=== PATIENT | female | born 1935 | race Caucasian/White ===

== ENCOUNTER 2018-09-07 05:43 | Inpatient (IN) ==
[2018-09-07] MEDS ORDERED: DEXTROSE 50% 50 ML SYRINGE IV PRN (09:06)
[2018-09-07] MEDS ORDERED: GLUCAGON FOR INJ 1 MG VIAL SQ PRN (09:06)
[2018-09-07] MEDS ORDERED: GLUCOSE 10 TABS/TUBE PO PRN (09:06)
[2018-09-07] MEDS ORDERED: ONDANSETRON INJ 2 MG/ML 2 ML VIAL IV PRN (09:06)
[2018-09-07] MEDS ORDERED: CARBOHYDRATES FOR HYPOGLYCEMIA PO PRN (09:06)
[2018-09-07] MEDS ORDERED: ACETAMINOPHEN 325 MG TAB PO PRN (09:06)
[2018-09-07] MEDS ORDERED: GLUCOSE 40% GEL 15 GM TUBE PO PRN (09:06)
[2018-09-07] MEDS ORDERED: dilTIAZem HCl 125 MG in DEXTROSE 5% 100 ML IV SCH (09:30)
--- NOTE | 2018-09-07 09:35 | History & Physical Report ---
Date of Service September 07, 2018 Assessment & Plan (1) Atrial fibrillation with RVR: - Admit to tele - Trend cardiac biomarkers, initial set was negative at 0.021 from OSH - EKG reviewed per paper chart showing Afib with QI=259, now converted to NSR. - Check 2 D echo, pt reports had one in May. Follows with Dr. Villeda as outpatient and is scheduled to see him in November. Have requested records from his office. Will ask CM to schedule f/u appt sooner. - PT/OT consulted - Cardiology consulted - For now continue cardizem gtt but likely will transition off this with titration of her metoprolol succ. Ordered morning dose now. Likely can increase metoprolol from 25 mg to 50 mg daily, monitor BP. Stable -Was given Lovenox 75 mg x 1 at outside hospital this morning (2) Elevated troponin: Troponin trended upward and is likely secondary to myocardial demand ischemia due to rapid atrial fibrillation with likely underlying CAD -Nuclear medicine stress test scheduled for in the morning as per cardiology Trend troponin until peaks -Continue aspirin, beta-karin (3) HTN (hypertension): - Continue losartan/hctz for now -Increasing metoprolol to 50 mg daily - BP well controlled (4) DM II (diabetes mellitus, type II), controlled: - Accuchecks achs, ISS - A1C with am labs - HH/DM diet (5) Osteoporosis: - Cont Vit D supplementation (6) History of rib fracture: - R 6th per pt report, healing well, no respiratory complaints. If checking additional CXR note that this is an old fracture. - Due to mechanical fall about 1 month ago. - PT/OT consults, pt lives at home with her son. (7) Nephrolithiasis: - Hx of such, stable (8) GERD (gastroesophageal reflux disease): - Stable, likely contributing to burning sensation she experienced last night. Uses tums prn. (9) Valvular heart disease: Moderate MR, mild aortic stenosis -Follow as an outpatient (10) DVT prophylaxis: - Lovenox 40 mg daily, consider anticoagulation per cardiology. History of Present Illness Primary Care Provider: Solange Houston This is a 82 yo F with PMHx of HTN, DM II, osteoporosis, nephrolithiasis who presents from [facility] with episode of new onset afib with RVR. She was started on a cardizem bolus & gtt, lovenox 75 mg subq for anticoagulation and aspirin 81 mg, and was transferred due to the facility without available assembler sandal parts. She has since converted back to NSR with HR in 70s during transport. Pt notes palpitations and substernal burning started last evening while she was at home, she went to bed but was unable to sleep. At 0300 presented to [place]. She did not take morning metoprolol today. The patient currently feels well and states no longer with palpitations or burning. She denies any shortness of breath, chest pain. Pt notes she did fall about 1 month ago, mechanical fall d/t missing a step, and suffered a Right 6th rib fracture. She denies respiratory complaints regarding this. Initial troponin-I was 0.021, CBC wnl, PRP wnl. Allergies Allergy/AdvReac Type Severity Reaction Status Date / Time lansoprazole [From Prevacid] AdvReac Mild Unknown Verified 01/12/18 18:08 Home Medications Home Medications Medication Instructions Recorded Confirmed Type aspirin [Aspir-81] 81 mg PO DAILY 01/12/18 09/07/18 History calcium carbonate [Calcium 600] 600 mg PO BID 01/12/18 09/07/18 History cholecalciferol (vitamin D3) 2,000 unit PO DAILY 01/12/18 09/07/18 History [Vitamin D3] losartan-hydrochlorothiazide 1 tab PO DAILY 01/12/18 09/07/18 History metformin 500 mg PO BID 01/12/18 09/07/18 History metoprolol succinate 25 mg PO DAILY 01/12/18 09/07/18 History vit C-vit [id number]-3 1 cap PO DAILY 01/12/18 09/07/18 History [Ocuvite] Past Med/Surg History Medical History Nephrolithiasis History of rib fracture DM II (diabetes mellitus, type II), controlled Atrial fibrillation with RVR GERD (gastroesophageal reflux disease) Osteoarthritis Diabetes HTN (hypertension) Surgical History History of section Family History Other Family history non-contributory Social History Preferred Language: Bahamian Communication Ability: Effective Test Center 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 Beliefs That Will Affect Care: None Current Living Situation: Family Current Living Situation Comment: lives with son Other Information That Helps Us Care for You: No Feels Safe at Home: Yes Safety Concerns: Feels Safe At This Time Smoking Status: Former smoker Tobacco Type: cigarettes Smoking End Date: quit 20 yrs ago Second Hand Exposure: No Hx Alcohol Use: No Hx Substance Use: No Review of Systems Review of Systems: Constitutional: No fever, sweats or chills Eyes: No diplopia, no worsening or blurred vision ENT: normal hearing, no trouble swallowing Respiratory: No cough, sputum, dyspnea at rest or on exertion Cardiovascular: No chest pain, tightness or palpitations Abdomen: No pain, nausea, vomiting, diarrhea or constipation Musculoskeletal: No joint pain, calf pain, swelling Neurologic: No weakness, numbness/tingling, or balance problems Psychiatric: No anxiety or depression Skin: No rash or itch Physical Exam Physical Exam: General: awake, alert, no apparent distress Head: Normocephalic, atraumatic ENT: PERRL, EOMI, no pharyngeal exudate, mucous membranes moist Chest: Clear to auscultation, on room air, no adventitious breath sounds Cardiac: Regular rate and rhythm, faint murmur, no JVD, normal peripheral pulses, good capillary refill Abdominal: NABS x 4 quadrants, soft, nontender to palpation, no rebound, guarding or tenderness Extremities: Normal inspection, no peripheral edema or erythema, calfs nontender to palpation Psych: Normal mood and affect Neuro: AAO x 3, no motor deficits, speech is clear Results & Data Vital Signs (Past 12 Hours) Vital Signs Temp Pulse Pulse Resp BP Pulse Ox 09/07/18 08:40 36.8 C 75 18 100/63 96 09/07/18 08:35 77 Laboratory Results 09/07/18 09/07/18 09/07/18 Range/Units 16:31 16:28 16:28 WBC 8.93 (4.8-10.8) K/uL RBC 3.65 L (4.2-5.4) M/uL Hgb 11.6 L (12.0-16.0) g/dL Hct 33.9 L (37-47) % MCV 92.9 (80-100) fL MCH 31.8 (25-34) pg MCHC 34.2 (32-36) g/dL RDW Std Deviation 49.2 H (36.4-46.3) fL RDW Coeff of Hakan 14.4 (11.5-14.5) % Plt Count 238 (130-400) K/uL MPV 9.6 (7.4-10.4) fL Creatinine 0.70 (0.6-1.2) mg/dl Est Cr Clr Drug Dosing 62.1 ml/min Est GFR ( Amer) 94.8 Est GFR (Non-Af Amer) 81.8 POC Glucose 113 H (70-99) Total Bilirubin 0.3 (0.2-1) mg/dl Direct Bilirubin < 0.1 (0-0.2) mg/dl AST 19 (15-37) U/L ALT 21 (12-78) U/L Alkaline Phosphatase 86 (45-117) U/L Troponin I (0-0.045) ng/ml Total Protein 6.5 (6.4-8.2) gm/dl Albumin 3.3 L (3.4-5.0) gm/dl 09/07/18 09/07/18 09/07/18 Range/Units 15:40 11:10 09:34 WBC (4.8-10.8) K/uL RBC (4.2-5.4) M/uL Hgb (12.0-16.0) g/dL Hct (37-47) % MCV (80-100) fL MCH (25-34) pg MCHC (32-36) g/dL RDW Std Deviation (36.4-46.3) fL RDW Coeff of Hakan (11.5-14.5) % Plt Count (130-400) K/uL MPV (7.4-10.4) fL Creatinine (0.6-1.2) mg/dl Est Cr Clr Drug Dosing ml/min Est GFR ( Amer) Est GFR (Non-Af Amer) POC Glucose 107 H (70-99) Total Bilirubin (0.2-1) mg/dl Direct Bilirubin (0-0.2) mg/dl AST (15-37) U/L ALT (12-78) U/L Alkaline Phosphatase (45-117) U/L Troponin I 1.330 H* 0.374 H* (0-0.045) ng/ml Total Protein (6.4-8.2) gm/dl Albumin (3.4-5.0) gm/dl 09/07/18 Range/Units 09:18 WBC (4.8-10.8) K/uL RBC (4.2-5.4) M/uL Hgb (12.0-16.0) g/dL Hct (37-47) % MCV (80-100) fL MCH (25-34) pg MCHC (32-36) g/dL RDW Std Deviation (36.4-46.3) fL RDW Coeff of Hakan (11.5-14.5) % Plt Count (130-400) K/uL MPV (7.4-10.4) fL Creatinine (0.6-1.2) mg/dl Est Cr Clr Drug Dosing ml/min Est GFR ( Amer) Est GFR (Non-Af Amer) POC Glucose 126 H (70-99) Total Bilirubin (0.2-1) mg/dl Direct Bilirubin (0-0.2) mg/dl AST (15-37) U/L ALT (12-78) U/L Alkaline Phosphatase (45-117) U/L Troponin I (0-0.045) ng/ml Total Protein (6.4-8.2) gm/dl Albumin (3.4-5.0) gm/dl ECG Additional Comments: Reviewed from outside hospital records. See paper chart. Afib with RVR has since converted to NSR. Code Status & VTE Plan Code Status Full code, no heroic measures. - Discussed with pt at bedside. Supervising Physician Co-Signing Physician Notes PA Supervision Note: I personally saw and examined the patient. I verified all jones points and agree with KYLEE Gardner with the following exceptions and/or additions: This patient is an 82-year-old female with history as above who presents with palpitations and found to have rapid atrial fibrillation. This is new in onset for her. She also had associated chest burning and elevated troponin here. No further chest burning. No shortness of breath or palpitations. She converted to normal sinus rhythm in transit to this hospital. History reviewed as above ROS-other than above, patient also complains of leg cramps mostly at night. She is able to walk and go shopping without having to stop for leg cramps. Vitals reviewed Gen: AAOx3, NAD HEENT: Anicteric sclerae, EOMI CV: RRR positive 2/6 systolic murmur heard at the right upper sternal border, 3/6 holosystolic murmur heard best at the apex, nl S1S2 Pulm: CTAB no wcr Abd: +BS soft NT ND no masses or hernias Ext: No edema, 2+ DP/PT/popliteal/femoral pulses of the right lower extremity, left lower extremity with 2+ femoral and 1+ popliteal/DP/PT pulses Skin: No rashes, warm/dry Neuro: Full strength throughout 82-year-old female here with new onset rapid atrial fibrillation High [id number] score and needs anticoagulation-discussed risks of bleeding versus risk of benefit of reduction of stroke with patient. Discussed all options for anticoagulation and she would like to go with Eliquis. Start Eliquis 5 mg p.o. twice daily Increase metoprolol succinate to 50 mg once daily for rate control Trend troponin until it peaks, nuclear medicine stress test in the morning
[2018-09-07] MEDS ORDERED: Nursing to Pharmacy Communication ONE (10:36)
[2018-09-07] MEDS ORDERED: METOPROLOL SUCC 25MG EXT REL TAB PO SCH (11:00)
[2018-09-07] MEDS: CHOLECALCIFEROL 1,000 UNITS TAB PO SCH (12:00)
[2018-09-07] MEDS: ASPIRIN 81 MG ECTAB PO SCH (12:00)
[2018-09-07] MEDS: LOSARTAN/HCTZ 50/12.5MG TAB PO SCH (12:00)
--- NOTE | 2018-09-07 13:56 | Cardiology Consultation ---
Date of Consultation September 07, 2018 Assessment & Plan (1) Atrial fibrillation with RVR: The patient presented with atrial fibrillation. This is a new diagnosis. The patient most likely symptomatic from her high ventricular rates that as administration of diltiazem and control of her heart rate seemed to improve her symptoms dramatically. Subsequently she converted back to normal sinus rhythm. Currently she is feeling quite well. 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 Her atrial fibrillation is likely related to her age and chronic hypertension in addition to the structural changes noted on echocardiography. I would agree with doubling her beta-blockade. She also meets criteria for systemic anticoagulation. I would advocate stopping her aspirin in starting her either on Eliquis 5 milligrams twice daily or Xarelto 20 milligrams daily. Present on Admission?: No (2) Valvular heart disease: She has moderate mitral regurgitation and mild aortic stenosis. I do not believe either of these contributed to her symptoms earlier this morning. She has had echocardiography in the past and is currently followed by her own car diologist. These valvular lesions can be monitored over time. (3) Elevated troponin: She does have very mildly elevated troponin. This likely related to [place] ischemia rather than acute coronary event. She has significant LVH. She has an element of valvular heart disease and likely had very high ventricular rates. She did describe a sense of burning during her arrhythmia. It is possible this represented symptoms from ischemia. She does describe similar symptoms on occasion that are not definitely associated with activity. I think would be worth perfusion imaging in order to make sure she does not have a large territory myocardium at risk. She does report having had similar stress tests in the past but never being told that she had significant disease. The results of her stress testing are favorable do not think any additional intervention is required other than that for treatment of her atrial fibrillation. History of Present Illness Reason for Consultation: Atrial fibrillation Requesting Physician: Brittnee Attending Physician: Brittany Beaulieu MD History of Present Illness Patient is an 82-year-old woman without a history of coronary disease who awoke approximately midnight this morning with symptoms of palpitations and tachycardia. Patient had not had similar symptoms in the past. There was some associated chest burning. She did not report associated dizziness or lightheadedness. Symptoms persisted for several hours when she finally decided to go to the emergency room at [facility]. At that facility she was discovered to have atrial fibrillation and associated high ventricular rates. She was started on a diltiazem infusion and transferred to our facility for further care. Patient states that when she was administered the medication and clear field she felt better. Currently she has not been experiencing any symptoms of palpitations. Her chest burning also has resolved. In general, she is a sedentary individual. She is able to perform routine housework without limiting symptoms. She states that she does occasionally have chest burning but this is fairly random in nature. It does not appear to be clearly associated with any activity. She has occasional skipped beats. It is unclear whether she feels these are if she has been told she has an irregula rity in her heart based on prior monitoring. She has not been sick recently. She denies any orthopnea or paroxysmal nocturnal dyspnea. She has not had lower extremity edema. No other symptoms of chest pain. Allergies Allergy/AdvReac Type Severity Reaction Status Date / Time lansoprazole [From Prevacid] AdvReac Mild Unknown Verified 01/12/18 18:08 Home Medications Home Medications Medication Instructions Recorded Confirmed Type aspirin [Aspir-81] 81 mg PO DAILY 01/12/18 09/07/18 History calcium carbonate [Calcium 600] 600 mg PO BID 01/12/18 09/07/18 History cholecalciferol (vitamin D3) 2,000 unit PO DAILY 01/12/18 09/07/18 History [Vitamin D3] losartan-hydrochlorothiazide 1 tab PO DAILY 01/12/18 09/07/18 History metformin 500 mg PO BID 01/12/18 09/07/18 History metoprolol succinate 25 mg PO DAILY 01/12/18 09/07/18 History vit C-vit [id number]-3 1 cap PO DAILY 01/12/18 09/07/18 History [Ocuvite] Patient History Medical History Nephrolithiasis History of rib fracture DM II (diabetes mellitus, type II), controlled Atrial fibrillation with RVR GERD (gastroesophageal reflux disease) Osteoarthritis Diabetes HTN (hypertension) Surgical History History of section Social History Preferred Language: Turkmen Communication Ability: Effective Custom Bike Builder Required: No Beliefs That Will Affect Care: None Current Living Situation: Family Current Living Situation Comment: lives with son Other Information That Helps Us Care for You: No Feels Safe at Home: Yes Safety Concerns: Feels Safe At This Time Smoking Status: Former smoker Tobacco Type: cigarettes Smoking End Date: quit 20 yrs ago Second Hand Exposure: No Hx Alcohol Use: No Hx Substance Use: No Review of Systems Review of Systems: All systems reviewed & are unremarkable except as noted in HPI & below No recent constitutional symptoms such as fevers or chills. Physical Exam Physical Exam: She is alert and oriented x3. Mood affect appear normal. She answered all questions appropriately. HEENT: Sclerae are anicteric. Pupils are equal and reactive to light and acc ommodation. Extraocular movements were intact. Neuro: Cranial nerves intact Neck: Examination of the submandibular region did not reveal any significant lymphadenopathy. Carotids are palpable bilaterally and free of bruits on auscultation. There was no evidence of jugular venous distention. The thyroid was not enlarged. Lungs: Lungs are clear to auscultation bilaterally. There are no rales wheezes or rhonchi. She has normal respiratory effort without use of accessory muscles. There is normal pulmonary excursion. Cardiac: The rhythm was regular. S1 and S2 were normal. Harsh crescendo systolic murmur. The PMI was not markedly displaced on palpation. Abdomen: The abdomen was soft and nontender. Extremities: Patient has bilateral radial pulses that are equal in intensity. There is no evidence cyanosis or clubbing. There was no evidence of significant peripheral edema bilaterally. Skin: There are no rashes noted on examination today. Results & Data Vital Signs (Past 12 Hours) Vital Signs Temp Pulse Pulse Resp BP Pulse Ox 09/07/18 11:03 36.6 C 69 22 100/59 L 95 09/07/18 08:40 36.8 C 75 18 100/63 96 09/07/18 08:35 77 Laboratory Results Abnormal Lab Results 09/07/18 09/07/18 09/07/18 09:18 09:34 11:10 POC Glucose 126 H 107 H Troponin I 0.374 H* Diagnostic Findings Echocardiogram performed today revealed severe left ventricular hypertrophy, moderate mitral regurgitation, mild aortic stenosis but preserved LV systolic function. EKG obtained at our institution revealed normal sinus rhythm with evidence of left ventricular hypertrophy ECG Additional Comments: Normal sinus rhythm left ventricular hypertrophy
[2018-09-07] MEDS: INSULIN ASPART 100 UNITS/ML 3 ML PEN SC SCH ×3 (14:02→20:34)
[2018-09-07 16:40] LABS: Hematocrit (blood only) 33.9 % (37-47); Hemoglobin 11.6 g/dL (12.0-16.0); Mean Corpuscular Volume 92.9 fL (80-100); Mean Platelet Volume 9.6 fL (7.4-10.4); Platelet Count 238 K/uL (130-400); RDW Coefficient of Variation 14.4 % (11.5-14.5); RDW Standard Deviation 49.2 fL (36.4-46.3); Red Blood Count 3.65 M/uL (4.2-5.4); White Blood Count 8.93 K/uL (4.8-10.8)
[2018-09-07 16:48] LABS: Mean Corpuscular Hgb Conc 34.2 g/dL (32-36)
[2018-09-07 16:56] LABS: Alanine Aminotransferase 21 U/L (12-78); Albumin Level 3.3 gm/dl (3.4-5.0); Aspartate Aminotransferase 19 U/L (15-37); Bilirubin Direct < 0.1 mg/dl (0-0.2); Creatinine Clr Calc Pharmacy 62.1 ml/min; Est GFR (African American) 94.8; Est GFR (Non-African American) 81.8
[2018-09-07 16:59] LABS: Alkaline Phosphatase 86 U/L (45-117); Bilirubin,Total 0.3 mg/dl (0.2-1); Total Protein 6.5 gm/dl (6.4-8.2)
[2018-09-07] MEDS: APIXABAN 5 MG TABLET PO SCH (20:33)
[2018-09-08 07:00] LABS: Hematocrit (blood only) 35.5 % (37-47); Hemoglobin 11.9 g/dL (12.0-16.0); Mean Corpuscular Hgb Conc 33.5 g/dL (32-36); Mean Corpuscular Volume 94.2 fL (80-100); Mean Platelet Volume 9.6 fL (7.4-10.4); Platelet Count 215 K/uL (130-400); RDW Coefficient of Variation 14.4 % (11.5-14.5); RDW Standard Deviation 49.1 fL (36.4-46.3); Red Blood Count 3.77 M/uL (4.2-5.4); White Blood Count 6.73 K/uL (4.8-10.8)
[2018-09-08 07:33] LABS: Albumin Level 3.3 gm/dl (3.4-5.0); BUN Creatinine Ratio 26.2 (10-20); Calcium 8.6 mg/dl (8.5-10.1); Est GFR (African American) 99.2; Est GFR (Non-African American) 85.6; Magnesium 2.2 mg/dl (1.8-2.4); Potassium 3.8 mmol/L (3.5-5.1)
[2018-09-08 07:36] LABS: Albumin Globulin Ratio 1.1 (0.9-2); Bilirubin,Total 0.4 mg/dl (0.2-1); Globulin 3.1 gm/dl (2.5-4.0); Phosphorus 2.2 mg/dl (2.5-4.9); Total Protein 6.4 gm/dl (6.4-8.2)
[2018-09-08 07:40] LABS: Estimated Average Glucose 128 mg/dl
[2018-09-08] MEDS ORDERED: REGADENOSON 0.4 MG/5 ML SYR IV ONE (07:50)
[2018-09-08] MEDS ORDERED: METOPROLOL SUCC 50MG EXT REL TAB PO SCH (09:00)
[2018-09-08] MEDS ORDERED: ENOXAPARIN INJ 40 MG/0.4 ML SYR SQ SCH (09:00)
[2018-09-08] MEDS: INSULIN ASPART 100 UNITS/ML 3 ML PEN SC SCH ×3 (09:31→16:48)
[2018-09-08] MEDS: APIXABAN 5 MG TABLET PO SCH (10:17)
[2018-09-08] MEDS: ASPIRIN 81 MG ECTAB PO SCH (10:17)
[2018-09-08] MEDS: LOSARTAN/HCTZ 50/12.5MG TAB PO SCH (10:17)
[2018-09-08] MEDS: CHOLECALCIFEROL 1,000 UNITS TAB PO SCH (10:18)
--- NOTE | 2018-09-08 17:37 | Myocardial Perfusion Study ---
Date of Service September 08, 2018 Myocardial Perfusion Study [facility] Myocardial Perfusion Study Report Procedure: 1. Myocardial perfusion study performed in multiple views/images 2. Lexiscan pharmacologic stress ECG Indications: 1. NSTEMI 2. Atrial fibrillation Ordering physician: Dr. Beaulieu Procedural details: For the stress portion of the study, Lexiscan 0.4 mg was intravenously administered followed by a saline flush. This was followed by 32.19 mCi of technetium 99m Cardiolite, injected at 9:10 a.m. on 09/08/2018. 30 minutes following the injection, imaging of the heart was performed in multiple projections. For the rest portion of the study, 11.2 mCi technetium 99m Cardiolite was injected intravenously at 7:32 a.m. on 09/08/2018. 1 hour following the injection, imaging of the heart was performed in the same projections. Lexiscan stress ECG: Resting ECG demonstrated: Sinus rhythm 78 bpm. Inferolateral T-wave inversion. LVH. Maximum heart rate: 121 bpm Maximal, age-predicted heart rate: 86 % Resting blood pressure: 139/75 mmHg Maximum blood pressure: 168/[address] changes: None Arrhythmia: None Symptoms: None Findings: Rotating raw imaging demonstrated no significant lung uptake. There is no significant motion artifact. Heart size appeared normal. Myocardial perfusion demonstrated a large area of severely reduced uptake involving the base to distal inferior and base to distal inferolateral wall segments which was partially fixed, but significantly reversible in rest imaging. Ejection fraction: 49 % Wall motion: Hypokinesis involving the inferior and inferolateral wall segments. Otherwise normal wall motion. Visually, transient ischemic dilation suggested. Impression: 1. Abnormal myocardial perfusion study suggesting a large area of inferior and inferolateral ischemia. 2. Low-normal left ventricular systolic function. EF 49%. 3. Hypokinesis of the inferior and inferolateral wall segments. 4. Transient ischemic dilation suggested. 5. Negative Lexiscan ECG for ischemia at 86% MPHR. 6. Dr. Cordova (it security consultant associate sales manager) was notified of above findings.
--- NOTE | 2018-09-08 18:42 | Discharge Summary ---
Date of Service September 08, 2018 Admission HPI Per Admitting Provider This is a 82 yo F with PMHx of HTN, DM II, osteoporosis, nephrolithiasis who presents from [facility] with episode of new onset afib with RVR. She was started on a cardizem bolus & gtt, lovenox 75 mg subq for anticoagulation and aspirin 81 mg, and was transferred due to the facility without available hardware installer. She has since converted back to NSR with HR in 70s during transport. Pt notes palpitations and substernal burning started last evening while she was at home, she went to bed but was unable to sleep. At 0300 presented to [place]. She did not take morning metoprolol today. The patient currently feels well and states no longer with palpitations or burning. She denies any shortness of breath, chest pain. Pt notes she did fall about 1 month ago, mechanical fall d/t missing a step, and suffered a Right 6th rib fracture. She denies respiratory complaints regarding this. Initial troponin-I was 0.021, CBC wnl, PRP wnl. Principal Diagnosis Rapid atrial fibrillation Myocardial demand ischemia Abnormal Nuclear Stress test Discharge Exam Constitutional WD/WN, vitals as above Neck trachea midline, no thyromegaly Respiratory normal respiratory effort, lungs clear to auscultation Cardiovascular Rate/Rhythm: regular rate and regular rhythm Heart Sounds: + murmur (3/6 LETICIA at RUSB) Extremities: no edema Gastrointestinal (Abdomen) normal bowel sounds, soft, nontender, no hepatosplenomegaly Musculoskeletal Extremities: extremities normal to inspection; no cyanosis and no clubbing Skin no rashes, warm and dry Neurologic moves all extremities and awake; no focal motor deficits Psychiatric A+Ox3, euthymic affect Discharge Data Allergies Allergy/AdvReac Type Severity Reaction Status Date / Time lansoprazole [From Prevacid] AdvReac Mild Unknown Verified 01/12/18 18:08 Consultations Cardiology Procedures Performed Nuclear Myocardial perfusion Stress test Ordered Studies ECHO Hospital Course (1) Atrial fibrillation with RVR: This patient is an 82-year-old female who presents with palpitations and found to have rapid atrial fibrillation. This is new in onset for her. She als o had associated chest burning and elevated troponin here. No further chest burning after admission was noted. No shortness of breath or palpitations. She converted to normal sinus rhythm in transit to this hospital. -she was admitted to telemetry unit here and no further episodes of atrial fibrillation - troponin peaked at 1.33 after admission and then trended downward as below - Cardiology consulted and recommended starting anticoagulation with Elqiuis nad pt was agreeable to this -also increased her home Toprol XL to 50mg once daily (2) Elevated troponin: Troponin trended upward and peaked at 1.3 as above. Is likely secondary to myocardial demand ischemia due to rapid atrial fibrillation with likely underlying CAD -Nuclear medicine stress test performed here and showed: Impression: 1. Abnormal myocardial perfusion study suggesting a large area of inferior and inferolateral ischemia. 2. Low-normal left ventricular systolic function. EF 49%. 3. Hypokinesis of the inferior and inferolateral wall segments. 4. Transient ischemic dilation suggested. 5. Negative Lexiscan ECG for ischemia at 86% MPHR. -As patient was asymptomatic and did not want to wait in the hospital through the holiday weekend for a cardiac catheterization, it was felt she was stable for discharge -plan for outpt cardiac cath next week-she will hold metformin and Elqiquis 2 days prior -Continue aspirin, beta-karin, statin (3) HTN (hypertension): - Continue losartan/hctz -Increased metoprolol to 50 mg daily - BP well controlled (4) DM II (diabetes mellitus, type II), controlled: Controlled - A1C here only 6.2% SSI while here and ok to restart metformin on discharge (5) Osteoporosis: - Cont Vit D supplementation (6) History of rib fracture: - R 6th per pt report, healing well, no respiratory complaints. - Due to mechanical fall about 1 month ago. - PT/OT consults, pt lives at home with her son. (7) Nephrolithiasis: - Hx of such, stable (8) GERD (gastroesophageal reflux disease): - Stable - Uses tums prn. (9) Valvular heart disease: Moderate MR, mild aortic stenosis seen on ECHO -Follow as an outpatient (10) DVT prophylaxis: Eliquis started Dispo-stable for dc to home Total Time Total Time Spent Total Time Spent (In Minutes): >30 min Total Time Includes: Examination of the Patient, Discharge Planning, Medication Reconciliation and Communication With Other Providers (Cardiology) Discharge Plan Discharge Items Patient Disposition: Home - Self-Care Reason For Visit: Rapid atrial fibrillation Discharge Diagnosis: Rapid atrial fibrillation, suspected coronary artery dis ease, abnormal stress test Condition: Good Discharge Goals: Diagnostic testing, Improve disease control, Learn about illness and Therapeutic intervention Activity: As commented below Lifting: None Bathing: No limitations Exercise/Sports: None Exercise Comment: Do not over exert yourself over the next week leading up to your cardiac catheterization Non-emergency contact: Primary Care Provider and Applications Sales Representative Call non-emergency contact if: you have any medication questions, your symptoms worsen, your pain is not controlled, your pain is worsening, your pain is unusual for you and your pain is concerning for you Follow-up/Referrals: Alex Cordova MD [Physician] - (Follow-up for cardiac catheterization on , 09/14/2018. The [facility] cardiology office will contact you with details about this on 09/12/2018) Solange Houston DO [Primary Care Provider] - 09/12/18 12:00 pm (Please, follow up with Dr. Solange Houston on TuesdaySeptember 12 at 12:00 pm. *If you need to change this appointment, call the office at [phone].) Diet: Carb Consistent or DM2 and Heart Healthy Addtl Provider Instructions: You were admitted to the hospital because of a rapid irregular heartbeat which is called atrial fibrillation. Your heart spontaneously converted back to a normal rhythm. Your metoprolol dose was increased to 50 mg once daily to help control the fast heartbeat if it ever occurs again. You were started on a blood thinner called Eliquis which is to be taken twice a day to prevent you from having a stroke due to having atrial fibrillation. While you are here, you reported a history of chest burning and you had an abnormal blood test with an elevated "troponin" that showed strain on the heart. You went on to have a cardiac stress test which showed you most likely have a blockage of 1 of the main arteries of your heart. It is recommended that you have a cardiac catheterization. You have chosen to return to do this next . In the meantime, do not over exert yourself, but you can perform your usual activities of daily living including walking, shopping, light housework, etc. The [facility] cardiology office will be contacting you on Tuesday with details about your upcoming procedure which should be next September 14. You should stop taking the Eliquis blood thinner starting September 12 in preparation for your procedure. You should also stop taking your metformin at that time. Please keep your follow-up appointment with your primary care physician as scheduled for you. If you develop chest pain, pressure, or chest burning, or if you develop a rapid heartbeat or shortness of breath, please go to the closest emergency room or call 911. Prescriptions: New metoprolol succinate 50 mg Tablet Extended Release 24 Hr 50 mg PO DAILY Qty: 30 RF: 0 Eliquis 5 mg Tablet 5 mg PO BID Qty: 60 RF: 0 Continued metformin 500 mg Tablet 500 mg PO BID RF: 0 calcium carbonate [Calcium 600] 600 mg calcium (1,500 mg) Tablet 600 mg PO BID RF: 0 losartan-hydrochlorothiazide 50-12.5 mg Tablet 1 tab PO DAILY RF: 0 cholecalciferol (vitamin D3) [Vitamin D3] 1,000 unit Capsule 2,000 unit PO DAILY RF: 0 Ocuvite [id number] ax-piio-pa-mg Capsule 1 cap PO DAILY RF: 0 rosuvastatin 10 mg tablet 10 mg PO Q2D RF: 0 Discontinued metoprolol succinate 25 mg Tablet Extended Release 24 Hr 25 mg PO DAILY RF: 0 Stand-Alone Forms: [facility] Discharge Orders: Discharge Order (Routine); Ordered 09/08/18 Ordered By: Brittany Beaulieu Admission Data Admit Date/Time: 09/07/18 08:29 Attending Provider: Brittany Beaulieu Admit Provider: Juani Gardner Primary Care Provider: Solange Houston Other Providers: Alex Cordova Service: Telemetry Other Interventions: Discharge Summary Assessment (RN) Last Done: 09/08/18 18:47 Pending Studies at Discharge: No DC Date/Time DO NOT enter until pt leaves facility: 09/08/18 19:23
--- NOTE | 2018-09-08 19:26 | Cardiology Progress Note ---
Date of Service September 08, 2018 Assessment & Plan (1) Atrial fibrillation with RVR: She has maintained sinus rhythm throughout the course of today. We have doubled her metoprolol and added anticoagulation. This point she can stay on aspirin as she likely require intervention based on the results of her perfusion study. (2) Valvular heart disease: She has moderate mitral regurgitation and mild aortic stenosis. I do not believe either of these contributed to her symptoms earlier this morning. 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 These valvular lesions can be monitored over time. (3) Elevated troponin: Her perfusion study does suggest an area of ischemia. This is likely responsible for the elevation in troponins in the setting of her high heart rates. Do not believe she suffers from an acute coronary syndrome and I think it is safe for discharge. I did discuss with her the options for an ongoing evaluation to include coronary angiography. She was in favor and we schedule this tentatively for next . She was asked to refrain from severe physical activity and report to the emergency room for any additional episodes of chest discomfort or palpitations. Addition of a statin to her medical regimen also seems appropriate. Subjective This afternoon the patient was feeling well. She has not report any additional symptoms of palpitations or burning pain. She had ambulate around her room without additional symptoms. No dizziness or lightheadedness. Review of Systems Review of Systems: Per HPI Physical Exam Physical Exam: She is alert and oriented x3. Mood affect appear normal. She answered all questions appropriately. HEENT: Sclerae are anicteric. Pupils are equal and reactive to light and accommodation. Extraocular movements were intact. Neuro: Cranial nerves intact Lungs: Lungs are clear to auscultation bilaterally. There are no rales wheezes or rhonchi. She has normal respiratory effort without use of accessory muscles. There is normal pulmonary excursion. Cardiac: The rhythm was regular. S1 and S2 were normal. There are no murmurs on examination. The PMI was not markedly displaced on palpation. Extremities: Patient has bilateral radial pulses that are equal in intensity. There is no evidence cyanosis or clubbing. Skin: There are no rashes noted on examination today. Results & Data Vital Signs (Past 12 Hours) Vital Signs Temp Pulse Pulse Resp BP Pulse Ox 09/08/18 18:47 36.8 C 73 68 20 98/65 L 96 09/08/18 15:47 36.8 C 73 20 98/65 L 96 09/08/18 11:12 36.6 C 75 18 118/71 94 Laboratory Results Abnormal Lab Results 09/07/18 09/07/18 09/08/18 20:26 23:29 06:32 WBC 6.73 RBC 3.77 L Hgb 11.9 L Hct 35.5 L MCV 94.2 MCH 31.6 MCHC 33.5 RDW Std Deviation 49.1 H RDW Coeff of [place] 14.4 Plt Count 215 MPV 9.6 Sodium Potassium Chloride Carbon Dioxide Anion Gap BUN Creatinine Est Cr Clr Drug Dosing Est GFR ( Amer) Est GFR (Non-Af Amer) BUN/Creatinine Ratio Glucose POC Glucose 112 H Estimat Average Glucose Hemoglobin A1c Calcium Phosphorus Magnesium Total Bilirubin AST ALT Alkaline Phosphatase Troponin I 1.050 H* Total Protein Albumin Globulin Albumin/Globulin Ratio 09/08/18 09/08/18 09/08/18 06:32 06:32 11:10 WBC RBC Hgb Hct MCV MCH MCHC RDW Std Deviation RDW Coeff of [place] Plt Count MPV Sodium 143 Potassium 3.8 Chloride 110 H Carbon Dioxide 28 Anion Gap 5.0 BUN 16 Creatinine 0.61 Est Cr Clr Drug Dosing 71.0 Est GFR ( Amer) 99.2 Est GFR (Non-Af Amer) 85.6 BUN/Creatinine Ratio 26.2 H Glucose 123 H POC Glucose 133 H Estimat Average Glucose 128 Hemoglobin A1c 6.1 H Calcium 8.6 Phosphorus 2.2 L Magnesium 2.2 Total Bilirubin 0.4 AST 21 ALT 22 Alkaline Phosphatase 85 Troponin I Total Protein 6.4 Albumin 3.3 L Globulin 3.1 Albumin/Globulin Ratio 1.1 09/08/18 16:31 WBC RBC Hgb Hct MCV MCH MCHC RDW Std Deviation RDW Coeff of [place] Plt Count MPV Sodium Potassium Chloride Carbon Dioxide Anion Gap BUN Creatinine Est Cr Clr Drug Dosing Est GFR ( Amer) Est GFR (Non-Af Amer) BUN/Creatinine Ratio Glucose POC Glucose 124 H Estimat Average Glucose Hemoglobin A1c Calcium Phosphorus Magnesium Total Bilirubin AST ALT Alkaline Phosphatase Troponin I Total Protein Albumin Globulin Albumin/Globulin Ratio
== END 2018-09-08 19:23 | disposition home or self-care (01) | DRG 309 ==
LOC: SUATTDRO 08:29 → 2S 08:36
DX: K21.9 Gastro-esophageal reflux disease without esophagitis; E11.9 Type 2 diabetes mellitus without complications; I48.91 Unspecified atrial fibrillation; I24.8 Other forms of acute ischemic heart disease; Z79.899 Other long term (current) drug therapy; Z79.82 Long term (current) use of aspirin; M81.0 Age-related osteoporosis without current pathological fracture; I10 Essential (primary) hypertension; Z79.84 Long term (current) use of oral hypoglycemic drugs; I08.0 Rheumatic disorders of both mitral and aortic valves